=== PATIENT | male | born 1995 | race Caucasian/White ===

== ENCOUNTER 2016-04-06 18:38 | Emergency (ER) | payer OTHER ==
[2016-04-06 19:06] VITALS: BP 140/68
[2016-04-06] MEDS ORDERED: IBUPROFEN 600 MG TABLET PO ONE (19:07)
--- NOTE | 2016-04-06 19:11 | ER Document Report ---
ED Extremity Problem, Lower - General Stated Complaint: KNEE INJURY Time seen by provider: 19:08 Mode of Arrival: Ambulatory Information source: Patient - HPI Patient complains to provider of: Pain Location: Knee Occurred: Yesterday Where: Home Onset/Duration: Sudden Quality of pain: Achy Severity: Moderate Pain Level: 3 Recent injury: No Exacerbated by: Movement, Walking Relieved by: Nothing Notes: Patient is a 20-year-old male presenting to the emergency room complaining of pain to his left knee, states he injured it during exercises in January, it intermittently improved, yesterday evening when he went to get adequate bathroom he started having pain in it again, denies any injury yesterday, no numbness or tingling, he has a orthopedic brace that he borrowed from a friend on it, but is able to ambulate with minimal difficulty - Related Data Allergies/Adverse Reactions: No Known Allergies Allergy (Unverified 04/06/16 19:08) Past Medical History - General Information source: Patient - Social History Smoking Status: Never Smoker Family History: Reviewed & Not Pertinent Review of Systems - Review of Systems Constitutional: No symptoms reported EENT: No symptoms reported Cardiovascular: No symptoms reported Respiratory: No symptoms reported Gastrointestinal: No symptoms reported Genitourinary: No symptoms reported Male Genitourinary: No symptoms reported Musculoskeletal: See HPI Skin: No symptoms reported Hematologic/Lymphatic: No symptoms reported Neurological/Psychological: No symptoms reported -: Yes All other systems reviewed and negative Physical Exam - Vital signs Vitals: Temp Pulse Resp BP Pulse Ox 97.6 F 68 16 140/68 H 100 04/06/16 19:06 04/06/16 19:06 04/06/16 19:06 04/06/16 19:06 04/06/16 19:06 Interpretation: Normal - Notes Notes: - General General appearance: Appears well, Alert In distress: None - HEENT Head: Normocephalic, Atraumatic Eyes: Normal Conjunctiva: Normal Extraocular movements intact: Yes Eyelashes: Normal Pupils: PERRL - Respiratory Respiratory status: No respiratory distress - Cardiovascular Rhythm: Regular - Abdominal Inspection: Normal - Back Back: Normal - Extremities General upper extremity: Normal inspection General lower extremity: Pain over left patella, and medial joint space of the left knee, pain with range of motion testing, distal sensation and motor is intact - Neurological Neuro grossly intact: Yes Orientation: AAOx4 [place] Coma Scale Eye Opening: Spontaneous [place] Coma Scale Verbal: Oriented Jean[place] Coma Scale Motor: Obeys Commands Jeaneth Coma Scale Total: 15 - Psychological Associated symptoms: Normal affect, Normal mood - Skin Skin Temperature: Warm Skin Moisture: Dry Skin Color: Normal Course - Re-evaluation Re-evalutation: 04/06/16 19:37 Imaging findings were discussed with patient at bedside which are unremarkable, he was offered pain medication and information for follow-up with orthopedics, advised to return if symptoms worsen his understanding and agreement with this - Vital Signs Vital signs: Temp Pulse Resp BP Pulse Ox 97.6 F 68 16 140/68 H 100 04/06/16 19:06 04/06/16 19:06 04/06/16 19:06 04/06/16 19:06 04/06/16 19:06 - Diagnostic Test Radiology reviewed: Image reviewed, Reports reviewed Discharge - Discharge Clinical Impression: Left knee injury Qualifiers: Encounter type: initial encounter Qualified Code(s): S89.92XA - Unspecified injury of left lower leg, initial encounter Condition: Stable Disposition: HOME, SELF-CARE Instructions: Ice & Elevation ([facility]), Suspected Internal Knee Injury ([facility]), Sprained Knee ([facility]) Additional Instructions: Follow up with your primary care provider and an orthopedic surgeon in one to 2 days. Return to the emergency room immediately if symptoms worsen or any additional concerns. Ice and elevate the affected extremity. Limit weightbearing. Prescriptions: Ibuprofen [Motrin 600 Mg Tablet] 600 mg PO TID #30 tablet Forms: Return to Work Referrals: LENCHO MODI DO [ACTIVE STAFF] - Follow up as needed
== END 2016-04-06 19:30 | disposition home or self-care (01) ==
LOC: ER 18:38
DX: S89.92XA Unspecified injury of left lower leg, initial encounter (principal); X58.XXXA Exposure to other specified factors, initial encounter; Y92.009 Unspecified place in unspecified non-institutional (private) residence as the place of occurrence of the external cause
CPT/HCPCS: 99283